=== PATIENT | female | born 1965 | race African-American/Black ===

== ENCOUNTER 2018-11-02 21:19 | Emergency (ER) | payer SELFPAY ==
[2018-11-02 23:03] VITALS: BP 136/94
== END 2018-11-03 00:37 | disposition home or self-care (01) ==
LOC: ED 21:19
DX: T78.3XXA Angioneurotic edema, initial encounter (principal); T78.1XXA Other adverse food reactions, not elsewhere classified, initial encounter; I10 Essential (primary) hypertension; Z85.3 Personal history of malignant neoplasm of breast; Z98.890 Other specified postprocedural states; X58.XXXA Exposure to other specified factors, initial encounter
CPT/HCPCS: J1200; J2930; J3490; J7030